=== PATIENT | female | born 1995 | race African-American/Black ===

== ENCOUNTER 2023-04-05 11:47 | Outpatient (CLI) | payer OTHER, SELFPAY ==
[2023-04-05 12:54] LABS: CRP < 0.5 mg/dL (<1.0)
[2023-04-05 12:55] LABS: Thyroid Stimulating Hormone 0.946 uIU/mL (0.465-4.680)
[2023-04-05 13:01] LABS: Erythrocyte Sedimentation Rate 23 mm/hr (0-20)
[2023-04-05 14:34] LABS: Appearance Urine Clear (Clear); Bacteria Urine Rare /hpf; Bilirubin Urine Negative (Negative); Blood Urine Negative (Negative); Color Urine Yellow (Yellow); Glucose Urine UA Negative (Negative); Ketones Urine Negative (Negative); Leukocyte Esterase Ur Trace LEU/UL (Negative); Nitrate Urine Negative (Negative); Non Pathogenic Casts 0-2; Protein Urine Negative (Negative); RBC Urine 0-2 /hpf (0-2); Specific Grav Ur 1.017 (1.001-1.035); Squamous Epithelial Cell Urine None seen /hpf (Few); WBC Urine 0-5 /hpf
[2023-04-05 14:40] LABS: Add Urine Microscopic? YES
[2023-04-11 04:18] LABS: Immunoglobulin A 302 mg/dL (47-310); TTG IGA AB <1.0 U/mL (<15.0)
== END 2023-04-05 11:48 | disposition home or self-care (01) ==
LOC: ANHLAB 11:48
PROVIDERS: Visit Provider Nurse Practitioner Family
DX: R10.9 Unspecified abdominal pain (principal); R19.4 Change in bowel habit; R19.7 Diarrhea, unspecified
CPT/HCPCS: 36415; 81001; 82784; 84443; 85652; 86140; 86364

== ENCOUNTER 2023-04-06 11:51 | Outpatient (NON) | payer OTHER, SELFPAY ==
[2023-04-06 13:13] LABS: Toxigenic C. Diff NEGATIVE (NEGATIVE)
[2023-04-14 22:42] LABS: Calprotectin, Stool 37 mcg/g
== END 2023-04-06 11:52 | disposition home or self-care (01) ==
LOC: ANHLAB 11:52
PROVIDERS: Nurse Practitioner; Visit Provider Nurse Practitioner Family
DX: R10.9 Unspecified abdominal pain (principal); R19.4 Change in bowel habit; R19.7 Diarrhea, unspecified
CPT/HCPCS: 83993; 87045; 87177; 87209; 87427; 87449; 87493

== ENCOUNTER 2023-04-10 01:44 | Day surgery (SDC) | payer OTHER, SELFPAY ==
[2023-04-05 10:21] VITALS: BMI 29.2
[2023-04-10] MEDS: LACTATED RINGERS 1,000 ML 150 ML IV CONT (06:42)
[2023-04-10 06:43] VITALS: BP 132/81; PULSE 100; RESP 18; TEMP 36.3; O2SAT 100
--- NOTE | 2023-04-10 07:27 | WPDANESEPPF ---
Anes - Initial Pre Proc Eval Procedure: Operation Date: 04/10/23 07:30 Proposed Procedures p Colonoscopy - Bishop Valle MD Date/Time: 04/10/23 07:27 Surgeon: Bishop Valle MD Pre Op Diagnosis: Diarrhea,Change in bowel habit,abdom. pain Patient Data Age: 28 Gender: F Height: 1.63 m Weight: 74.5 kg Last Vital Signs Temp 97.3 F L 04/10/23 06:43 Pulse 100 04/10/23 06:43 Resp 18 04/10/23 06:43 BP 132/81 04/10/23 06:43 Pulse Ox 100 04/10/23 06:43 O2 Del Method Room Air 04/10/23 06:43 Allergies Allergy/AdvReac Type Severity Reaction Status Date / Time No Known Allergies Allergy Unverified 04/10/23 06:26 Home Medications Medication Instructions Recorded Confirmed Type albuterol sulfate 90 mcg/actuation 1 puff inhalation Q4H PRN 04/03/23 04/05/23 History aerosol inhaler Shortness Of Breath drospiren-e.estrad-l.mefol 3 1 tablet PO DAILY 04/03/23 04/05/23 History mg-0.02 mg-0.451 mg(24)/0.451 mg(4)tablet hyoscyamine sulfate 0.125 mg tablet 0.125 mg PO QID PRN abdominal pain 04/03/23 04/05/23 Rx #120 tabs Patient hx anesthesia problems: none Family hx anesthesia problems: none Results Review: All pre-operative results and documents have been reviewed as part of the pre-operative evaluation. [facility] Past Medical History Medical History (Updated 04/03/23 @ 09:59 by SILKE Sage) Abdominal pain delivery delivered Change in bowel habits Diarrhea Social History Social History (Updated 04/03/23 @ 09:20 by Nuvia Dang MA) Smoking status: Never smoker Second hand tobacco smoke exposure: No Alcohol intake: current Substance use: never Substance use type: does not use Living arrangements: with family Spiritual care concerns: No Anes - Eval Final PreProcedure Day of Procedure 04/10/23 07:27 Patient weight: normal Heart: regular rate and rhythm Lungs: clear to auscultation Airway: Mallampati scale class II Neurological: alert and oriented Last oral intake: >/= 8 hours ASA classification: II Emergent: no Anesthetic plan: proceed Anesthesia type and monitoring: general GIVS and standard monitoring Results Review: All pre-operative results and documents have been reviewed as part of the pre-operative evaluation. Informed Consent: The patient's anesthetic plan and its attendant risks and benefits were discussed with the patient/family/POA. Questions were solicited and answers provided to the satisfaction of the patient/family/POA.
--- NOTE | 2023-04-10 07:29 | WPDHPUPDATE1 ---
History and Physical Update Update Date/Time: 04/10/23 07:29 History and Physical has been reviewed, including an updated exam of the patient. There are NO changes in the patient's condition. Risks, benefits, and alternatives have been discussed and questions answered. Patient agrees to proceed with procedure.
[2023-04-10 07:48] VITALS: BP 102/68; PULSE 97; RESP 18; O2SAT 99
[2023-04-10 07:58] VITALS: BP 116/72; PULSE 87; RESP 18; O2SAT 99
[2023-04-10 08:08] VITALS: BP 113/70; PULSE 81; RESP 18; O2SAT 100
== END 2023-04-10 08:17 | disposition home or self-care (01) ==
PROVIDERS: Visit Provider Internal Medicine Gastroenterology
PROC: 0DJD8ZZ Inspection of Lower Intestinal Tract, Via Natural or Artificial Opening Endoscopic (ICD-10-PCS; CPT 45378; principal; 2023-04-10 07:30)
DX: R19.7 Diarrhea, unspecified (principal); K64.8 Other hemorrhoids; Z79.51 Long term (current) use of inhaled steroids
CPT/HCPCS: 45378; J2704; J7120

== ENCOUNTER 2024-09-17 12:32 | Emergency (ER) | payer OTHER, MEDICAID, SELFPAY ==
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
[2024-09-17 12:44] VITALS: BP 133/81; PULSE 89; RESP 16; TEMP 36.8; O2SAT 100
== END 2024-09-17 13:25 | disposition home or self-care (01) ==
PROVIDERS: Emergency Provider Nurse Practitioner
DX: R51.9 Headache, unspecified (principal)
CPT/HCPCS: 99213; G0463

== ENCOUNTER 2025-02-05 12:03 | Outpatient (CLI) | payer OTHER, SELFPAY ==
--- OUTSIDE RECORDS SUMMARY | 2025-02-05 12:07 | XMS_ITS | Encounter Summary ---
Author Organization [facility] Healthcare Address [address] [place] [address] Care Team Providers Care Active Directory Systems Administrator Name Role Phone Rosanna Boston Primary Care Provider [phone] Encounter Details Date Type Department Care Team (Late st Contact Info) Description 01/27/2025 Results Follow-Up [facility] Medical Group Family Medicine [address] [address] Rosanna Carver PA [address] [place] [address] US Pelvis W Endovaginal Social History Tobacco Use Types Packs/Day Years Used Date Smoking Tobacco: Never Smokeless Tobacco: Never Alcohol Use Standard Drinks/Week Comments Not Currently 0 (1 standard drink = 0.6 oz pur e alcohol) AUDIT-C Answer Date Recorded Q1: How often do you have a drink containing alc ohol? 2-4 times a month 01/16/2025 Q2: How many drinks containi ng alcohol do you have on a typical day when you are drinking? 1 or 2 01/16/2025 Q3: How often do you have si x or more drinks on one occasion? Never 01/16/2025 PHQ-2 Answer Date Recorded PHQ-2 Total Score (If total score is 3 or more points, staff should administer the PHQ-9) 0 01/16/2025 [place] Depression Scale Answer Date Recorded [place] Depression Scale Total 8 11/12/2021 The thought of harming myself has occurred to me . Never 11/12/2021 Personal Safety Answer Date Recorded Have you ever been in or are you currently in a harmful physical or emotional relationship or is someone making you feel afraid or unsafe? Denies 03/28/2023 Comments No Sex and Gender Information Value Date Recorded Sex Assigned at Not on file Legal Sex Female 1:48 PM CDT Gender Identity Not on file Sexual Orientation Not on file documented as of this encounter Miscellaneous Notes * Result Encounter Note - Monica Guevara LPN - 01/27/2025 3:09 PM CDT Pt informed, voiced understanding. documented in this encounter Plan of Treatment Not on file documented as of this encounter Visit Diagnoses Not on filedocumented in this encounter Care Teams Active Directory Systems Administrator Relationship Specialty Start Date End Date Rosanna Boston PA [address] [facility] [address] [place], [place] [id number] PCP - General Family Medicine 09/26/24 documented as of this encounter
--- OUTSIDE RECORDS SUMMARY | 2025-02-05 12:07 | XMS_ITS | Clinical Summary ---
Author Organization [facility] Address [address] [facility] [place] [address] Care Team Providers Care Salmon Gillnet Vessel Operator Name Role Phone Unavailable Primary Care Provider Unavailabl e Source Comments [facility],non-owned Affiliates and Associated Physician Practices is amultiple site organization consisting of ambulatory clinics and hospital sitesin [place], [place], [place] and [place]. This disclosure is being madepursuant to the Care Everywhere program and may not contain all information available regarding this patient. Last updated 18.[facility] Allergies No known active allergies Medications * Be aware that medications may not be up to date on this document. Alwaysverify current medications with the patient. albuterol HFA (Proventil; Ventolin; Proair) 108 (90 Base) MCG/ACT inhaler TAKE 2 PUFFS BY MOUTH EVERY 4 HOURS NEEDED FOR WHEEZE 06/28/2021 Active HYDROcodone-acet aminophen (Debord) 5-325 MG tabletIndication s:Pain Take 1 (one) tablet by mouth every 6 hours as needed Reasons: Pain 12 tablet 11/08/2022 Active Active Problems Problem Noted Date Diagnosed Date Lipoma of left upper extremity 01/13/2021 Acne vulgaris 10/03/2018 Family History Medical History Relation Name Comments None Known Brother None Known Father None Known Maternal Aunt None Known Maternal Grandfather None Known Maternal Grandmother None Known Maternal Uncle None Known Mother None Known Other None Known Paternal Aunt None Known Paternal Grandfather None Known Paternal Grandmother None Known Paternal Uncle None Known Sister Asthma Neg Hx CVA Neg Hx Cancer - Breast Neg Hx Cancer - Other Neg Hx Cancer - Skin, Melanoma Neg Hx Cancer - Skin, Non Melanoma Neg Hx Eczema Neg Hx Hemophilia Neg Hx Psoriasis Neg Hx Relation Name Status Comments Brother Father Maternal Aunt Maternal Grandfather Maternal Grandmother Maternal Uncle Mother Other Paternal Aunt Paternal Grandfather Paternal Grandmother Paternal Uncle Sister Social History Tobacco Use Types Packs/Day Years Used Date Smoking Tobacco: Never Smokeless Tobacco: Never Tobacco Cessation:Counseling Given: Not Answered Alcohol Use Standard Drinks/Week Comments Yes 0 (1 standard drink = 0.6 oz pur e alcohol) OCC Comments Unknown Sex and Gender Information Value Date Recorded Sex Assigned at Not on file Legal Sex Female 4:46 AM INFECTION CONTROL NURSE Gender Identity Not on file Sexual Orientation Not on file Last Filed Vital Signs Vital Sign Reading Time Taken Comments Blood Pressure 156/78 11/08/2022 2:05 PM CDT Pulse 89 11/08/2022 2:05 PM CDT Temperature 36.3 C (97.3 F) 11/08/2022 1:55 PM CDT Respiratory Rate 14 11/08/2022 2:05 PM CDT Oxygen Saturation 100% 11/08/2022 2:05 PM CDT Inhaled Oxygen Concentration - - Weight 76.7 kg (169 lb) 11/08/2022 10:00 AM CDT Height 162.6 cm (5' 4) 11/08/2022 10:00 AM CDT Body Mass Index 29.01 11/08/2022 10:00 AM CDT Plan of Treatment Health Maintenance Due Date Last Done Comments HEPATITIS C SCREENING 02/09/2013 DTAP/TDAP/TD VACCINES (1 - Tdap) 2014 HEPATITIS B VACCINE (1 of 3 - 19+ 3-dose series) 2014 PAP SMEAR 02/15/2016 HPV VACCINE (1 - 3-dose SCDM series) 2022 COVID-19 VACCINE (1 - 2023-2 5 season) 2024 DEPRESSION SCREENING 06/26/2024 INFLUENZA VACCINE (#1) 2025 05/26/2017 ZOSTER VACCINE (1 of 2) 2045 HIV SCREENING Completed 07/01/2017, 12/23/2016 HIB VACCINE Aged Out No longer eligi ble based on patient's age to complete this topic MENINGOCOCCAL (Group B) VACCINE SHARED DECISION-MAKING Aged Out No longer eligible based on patient's age to complete this topic MENINGOCOCCAL GROUPS A/C/Y/W VACCINE Aged Out No longer eligible b ased on patient's age to complete this topic PNEUMOCOCCAL VACCINE Aged Out No long er eligible based on patient's age to complete this topic Insurance [facility] [place] [address] [place] [address]
--- OUTSIDE RECORDS SUMMARY | 2025-02-05 12:07 | XMS_ITS | Clinical Summary ---
Author Organization [facility] Address [address] [place] [id number] Care Team Providers Care Transit Police Officer Name Role Phone None, Provider MD Primary Care Provider Unavaila ble Allergies No known active allergies Medications No known medications Active Problems Problem Noted Date Diagnosed Date Normal course ([facility]) 07/02/2017 Resolved Problems Problem Noted Date Diagnosed Date Resolved Date Labor and delivery, indicati on for care ([facility]) 07/01/2017 07/02/2017 Family History Medical History Relation Comments None Father None Mother Relation Status Comments Brother Alive Father Alive Mother Alive Sister Alive Social History Tobacco Use Types Packs/Day Years Used Date Smoking Tobacco: Never Smokeless Tobacco: Never Alcohol Use Standard Drinks/Week Comments Yes 0 (1 standard drink = 0.6 oz pur e alcohol) OCCASIONALLY Comments Unknown Sex and Gender Information Value Date Recorded Sex Assigned at Not on file Legal Sex Female 7:22 PM CDT Gender Identity Not on file Sexual Orientation Not on file Last Filed Vital Signs Vital Sign Reading Time Taken Comments Blood Pressure 125/76 03/20/2021 4:53 PM CDT Pulse 87 03/20/2021 4:53 PM CDT Temperature 37.1 C (98.8 F) 03/20/2021 4:53 PM CDT Respiratory Rate 18 03/20/2021 4:53 PM CDT Oxygen Saturation 100% 03/20/2021 4:53 PM CDT Inhaled Oxygen Concentration - - Weight 72.6 kg (160 lb) 03/20/2021 4:53 PM CDT Height 162.6 cm (5' 4) 03/20/2021 4:53 PM CDT Body Mass Index 27.46 03/20/2021 4:53 PM CDT Plan of Treatment Health Maintenance Due Date Last Done Comments Annual Physical 1998 Hepatitis C 2013 DTaP, Tdap and Td Vaccines ( 1 - Tdap) 2014 Hepatitis B Vaccines (1 of 3 - 19+ 3-dose series) 2014 COVID-19 Vaccine (1 - 2023-2 5 season) 2024 Cervical Cancer Screening Pa p Smear (Age 21 to 29) Every 3 Years 09/14/2024 09/14/2021 Cervical Cancer Screening 09/14/2024 HPV Vaccines Completed 08/05/2008, 03/25/2008, 01/16/2008 Meningococcal Vaccine Completed 05/07/2012 , 07/04/2006 Meningococcal B Vaccine Aged Out No l onger eligible based on patient's age to complete this topic Pneumococcal Vaccine: Pediatrics (0 to 5 Years) and At-Risk Patients (6 to 49 Years) Aged Out No longer eligible b ased on patient's age to complete this topic RSV Immunizations Under 20 Months Aged Out No longer eligible b ased on patient's age to complete this topic Insurance [employer] Advance Directives * Full Code (Latest Code Status on File) Date Activated Date Inactivated Comments 07/01/2017 11:01 AM 07/02/2017 12:30 PM Care Teams Transit Police Officer Relationship Specialty Start Date End Date None, Provider, PCP - General 09/08/20
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
--- OUTSIDE RECORDS SUMMARY | 2025-02-05 12:07 | XMS_ITS | Encounter Summary ---
Author Organization [facility] Healthcare Address [address] [place] [address] Care Team Providers Care Supervisor Volunteer Services Name Role Phone Rosanna Boston Primary Care Provider [phone] Encounter Details Date Type Department Care Team (Late st Contact Info) Description 01/17/2025 Results Follow-Up [facility] Medical Group Family Medicine [address] [address] Rosanna Boston PA [address] [address] [place](R) Advanced Vaginitis Plus, TMA Vaginal fluid Social History Tobacco Use Types Packs/Day Years [...] staff should administer the PHQ-9) 0 01/16/2025 Gray Depression Scale Answer Date Recorded Gray Depression Scale Total 8 11/12/2021 The thought [...] encounter Miscellaneous Notes * Telephone Encounter - Ailyn Webb MA - 01/20/2025 2:35 PM CDT has not been seen since 2021 documented in this encounter Plan of Treatment Not on file documented as of this encounter Visit Diagnoses Not on filedocumented in this encounter Care Teams Supervisor Volunteer Services Relationship Specialty Start Date End Date Rosanna Boston PA [facility] [address] [address] PCP - General Family Medicine 09/26/24 documented as of this encounter
--- OUTSIDE RECORDS SUMMARY | 2025-02-05 12:07 | XMS_ITS | Clinical Summary ---
Author Organization [facility] Address [address] [place] [address] Care Team Providers Care Crossbow Maker Name Role Phone Rosanna Boston Primary Care Provider [phone] Allergies No known active allergies Medications multivitamin tabletIndicatio ns:Vitamin Deficiency Prevention Take 1 tablet by mouth daily Active phentermine (ADIPEX-P) 37.5 mg tabletIndicatio ns:Weight Loss Management for Obese Patient (BMI >= 30) Take 1 tablet (37.5 mg total) by mouth daily before breakfast 90 tablet 1 5 03/25/20 25 Active drospirenone-et hinyl estradioL (Marcelle, 28,) 3-0.02 mg per tablet Take 1 tablet by mouth daily 84 tablet 3 5 11/30/19 26 Active Additional Information Patient not taking.Reported on 01/16/2025 metroNIDAZOLE (FLAGYL) 500 mg tablet Take 1 tablet (500 mg total) by mouth 2 (two) times a day for 7 days 14 tablet 5 01/25/20 25 metroNIDAZOLE (FLAGYL) 500 mg tablet Take 1 tablet (500 mg total) by mouth 2 (two) times a day for 2 days 4 tablet 5 01/31/20 25 Active Problems Problem Noted Date Diagnosed Date Overweight (BMI 25.0-29.9) 10/05/2023 Assessment & Plan (09/26/2024 2:29 PM CDT): Chronic. Uncontrolled. Goal: 140lb Recommend Nutritional every other Monday Seminar. Recommended Medication :Start Phentermine. Assessment & Plan (09/19/2024 9:48 AM CDT): BMI Follow-up includes: education provided. Assessment & Plan (12/21/2023 3:06 PM CDT): Patient with 30 lb weight gain in the last 3 months. CBC, CMP, A1c and TSH normal. May be related to duloxetine, will change to sertraline. Referral provided to Dr. Álvarez. Assessment & Plan (10/05/2023 8:43 AM CDT): Chronic. Uncontrolled. See plan above. Anxiety and depression 07/08/2022 Assessment & Plan (12/21/2023 3:09 PM CDT): Chronic. Stable. Currently taking duloxetine which helps more for her abdominal pain near her surgical scar. She also feels abdominal pain is worsened by anxiety. Given potential to influence weight gain, we will stop duloxetine and change to sertraline. Stop duloxetine and start sertraline 50 mg next day. - discussed risks and side effects with patient - follow-up in 4 weeks Assessment & Plan (08/08/2023 12:59 PM ASSIGNMENT AGENT): Chronic. With possible new symptom of panic attacks. We will trial hydroxyzine. Continue duloxetine for pelvic pain and may also help with mood. Assessment & Plan (05/02/2023 10:51 AM ASSIGNMENT AGENT): Chronic. Uncontrolled. Start Cymbalta 30 mg every morning with food. Discussed actions/SE of anxiety and depression medications. May feel worse before feeling better. The pharmacologic and nonpharmacologic treatment of anxiety/depression were discussed with the patient. Included was a discussion of the current treatment regimens and their proposed mechanism of action concerning brain chemistry. Discussed the role of counseling as an adjunct to medications should we agree to pursue this. The patient denies suicidal or homicidal ideation and should this change, they agreed to inform us immediately or seek medical attention in the emergency room setting. Assessment & Plan (12/08/2022 10:08 AM CDT): Chronic. Stable. Without medication. Monitor Iron deficiency anemia 05/05/2022 Assessment & Plan (12/08/2022 10:08 AM CDT): Lost labs from her prior . Currently asymptomatic. Monitor Assessment & Plan (05/05/2022 9:37 AM ASSIGNMENT AGENT): Per patient request I have ordered vitamins since she states she tolerated these in the [id number] version. She is planning to get the labs done that were ordered in December to check her blood levels and ferritin. Well adult exam 01/04/2022 Overview (02/03/2025): PMH: Last pap: 10/25/2019, 12/08/2022 neg cells Last mammogram: @40 Last tdap: 2021 Last influenza: Last COVID: Last eye exam Assessment & Plan (12/08/2022 10:09 AM CDT): Annual Well Visit:08/27/2022 Mammogram: Pap: 10/25/2019, 12/08/2022 DXA: Colon Cancer: Zoster: Pneumococcal: Tdap: 2021 Acne vulgaris 10/03/2018 Assessment & Plan (12/08/2022 10:09 AM CDT): Chronic. Stable. Monitor Resolved Problems Problem Noted Date Diagnosed Date Resolved Date Abdominal pain 04/11/2023 12/04/2023 Assessment & Plan (10/05/2023 8:42 AM CDT): Chronic. Stable. Continue duloxetine 60 mg daily. Possible source of weight gain but she has been on this since March, less likely. Assessment & Plan (08/08/2023 12:55 PM ASSIGNMENT AGENT): Chronic. Improved with duloxetine. Continue. Discussed long-term impact of duloxetine include needing to monitor liver enzymes. - check blood work yearly Assessment & Plan (05/02/2023 10:51 AM ASSIGNMENT AGENT): Chronic. Pain improved with amitriptyline but with likely side effects of palpitations and tachycardia. Stop amitriptyline. We will start duloxetine 30 mg every morning. See plan below Assessment & Plan (04/11/2023 10:05 AM CDT): Chronic. Uncontrolled. Recent colonoscopy only showed nonbleeding internal hemorrhoids. CT of the abdomen and pelvis negative in the ER. Recent gynecological visit did not favor Gynecological etiology for pain. - we will get blood work from [place] to further evaluate the inflammatory markers patient mentions - consider surgical consult? Pain is near her scar - discussed IBS diet to try - can try ibuprofen 600 mg 3 times daily for 5 days. Take with food - will discuss case with supervising physician - consider nerve pain medicine; amitriptyline or gabapentin Overweight (BMI 25.0-29.9) 12/08/2022 0 10/05/2023 Assessment & Plan (08/08/2023 12:54 PM ASSIGNMENT AGENT): BMI Follow-up includes: education provided. Assessment & Plan (12/08/2022 10:10 AM CDT): Exercise 5 days a week, 30 mins per day recommended. Eat a heart healthy diet consisting of good, healthy protein (eggs, nuts, peanut butter, chicken, fish, turkey, less pork/beef), lots of vegetables, less carbohydrates and less sugar. Adjustment disorder with anxious mood 02/11/2022 07/08/2022 37 weeks gestation of 11/10/2021 01/04/2022 Encounters Date Type Department Care Team Description 01/28/2025 Orders Only [facility] Family Medicine [address] [place] [address] [phone] Rosanna Boston PA 01/28/[address] [phone] Rosanna Boston PA Medical Question/Miscellane ous 01/27/2025 Results Follow-Up [address] [phone] Rosanna Carver PA US Pelvis W Endovaginal 01/17/2025 Orders Only [address] [phone] Rosanna Boston PA 01/17/2025 Results Follow-Up [address] [phone] Rosanna Boston PA Sureswab(R) Advanced Vaginitis Plus, TMA Vaginal fluid 01/16/2025 9:00 AM CDT Office Visit [address] [phone] Rosanna Boston PA Vaginal discharge (Primary Dx); Vaginal odor; Overweight (BMI 25.0-29.9) 01/09/2025 4:00 PM CDT - 01/09/2025 11:59 PM CDT Hospital Encounter [facility] [address] [place] [address] Fibroids, submucosal; Pelvic pain Discharge Disposition: Discharge to home or self care 01/02/[address] [phone] Rosanna Boston PA Test Results 01/01/2025 1:00 PM CDT Lab [facility] [address] [place] [address] Secondary amenorrhea 01/01/2025 Results Follow-Up [address] [phone] Gemma Thompson PA Thyroid Function [place], Prolactin, Follicle stimulating hormone, Additional followed-up results: 3 12/31/2024 1:00 PM CDT Office Visit [address] [phone] Rosanna Carver, TAPAN Pelvic pain (Primary Dx); Fibroids, submucosal; Vaginal odor 12/31/2024 Nurse Triage [facility] [address] [phone] Rosanna Boston PA 11/29/2024 Orders Only [facility] [address] [phone] Rosanna Boston PA from Last 3 Months Immunizations Immunization Administration Dates Next Due DTaP 02/07/2000 DTaP, Unspecified 02/07/2000, 6,1995,06/23,1995 HPV, Quadrivalent 08/05/2008,03/25/2008,01/16/20 08 Hep B, Unspecified 1995,1995, 995 HiB 02/16/1996, 6,1995,04/22 Influenza, Quadrivalent, Spl it, Intramuscular 05/26/2017 Influenza, Unspecified 03/26/2024(Deferr ed: Patient decision),03/26/2024(Deferred: Patient decision),03/26/2024(Deferred: Patient decision),03/21/2023(Deferred: Patient Refused),03/26/2022(Deferred: Patient Refused),03/26/2021(Deferred: Patient Refused) MMR 11/11/2021(Deferred: Other - pt is rubella immune),02/07/2000,02/16/1996 Meningococcal MCV4P (Menactra) 05/07/2012,2006 OPV 02/07/2000 Polio, Unspecified 02/07/2000, 6,1995,04/22 Tdap 11/01/2021,05/22/2017,07/04/2006 Varicella 07/19/2006,07/15/1996 Surgical History Surgery Date Site/Laterality Comments SECTION LIPOMA RESECTION 12/01/2022 Left Left Forearm Family History Medical History Relation Name Comments Cancer Maternal Grandmother Heart disease Maternal Grandmother No Known Problems Paternal Grandmother Breast cancer Neg Hx Ovarian cancer Neg Hx Uterine cancer Neg Hx Relation Name Status Comments Father Unknown Maternal Grandmother Mother Alive Paternal Grandmother Alive Social History Tobacco Use Types Packs/Day Years Used Date Smoking Tobacco: Never Smokeless Tobacco: Never Tobacco Cessation:Counseling Given: Not Answered Alcohol Use Standard Drinks/Week Comments Not Currently [...] staff should administer the PHQ-9) 0 01/16/2025 [place] Depression Scale Answer Date Recorded [place] Depression Scale Total 8 11/12/2021 The thought [...] on file Sexual Orientation Not on file Obstetrics History Para Term AB IAB SAB Ectopic Multiple Livin g Live Births 3 3 3 0 3 3 Date Outcome GA Total Labor Labor/2nd/3rd Weight Sex Type Anes PTL Debra A1 A5 Name Clin 2017 Term 40w 0d M Vag-S pont 2019 Term 38w 0d M Vag-S pont Livin g Complications:Other (Comment ),Active labor, not applicable or unspecified fetus 022 Term 37w 0d 0h 02m 0h 02m 3.345 kg (7 lb 6 oz) F CS-LT ranv Spinal Livin g 8 9 CARY US,GI RLCAM ILLE Gian Chicas MD Delivery Location:[facility] Main [facility] ([facility]) Last Filed Vital Signs Vital Sign Reading Time Taken Comments Blood Pressure 102/74 01/16/2025 9:02 AM CDT Pulse 95 01/16/2025 9:02 AM CDT Temperature 36.7 C (98 F) 01/16/2025 9:02 AM CDT Respiratory Rate 16 01/16/2025 9:02 AM CDT Oxygen Saturation 99% 01/16/2025 9:02 AM CDT Inhaled Oxygen Concentration - - Weight 78.5 kg (173 lb) 01/16/2025 9:02 AM CDT Height 162.6 cm (5' 4) 01/16/2025 9:02 AM CDT Body Mass Index 29.7 01/16/2025 9:02 AM CDT Plan of Treatment Health Maintenance Due Date Last Done Comments Regular Well Visit/Exam 18-64 12/09/2023 12/08/2022, 11/04/2019 Influenza Vaccine (#1) 2025 05/26/2017 Cervical Cancer Screening 12/08/2025 12/08/2022, Depression Screening 01/16/2026 01/16/2025, 12/31/2024, 09/19/2024, Additional history exists DTaP/Tdap/Td Vaccine (9 - Td or Tdap) 11/02/2031 11/01/2021, 05/22/2017, 07/04/2006, Additional history exists Colon Cancer Screening-Colonoscopy 04/10/2033 04/10/2023 Hepatitis B Screening Completed 1995 , 1995, 1995 Varicella Vaccines Completed 07/19/2006, 07/15/1996 HPV Vaccines Completed 08/05/2008, 02/26, 01/16/2008 Hepatitis C Screening Completed 11/04/2019 Pneumococcal vaccine <65 Aged Out No longer eligible based on patient's age to complete this topic Procedures Procedure Name Priority Date/Time Associated Diagnosis Comments SURESWAB(R) ADVANCED VAGINITIS PLUS, TMA Routine 01/16/2025 10:00 AM CDT Vaginal discharge Vaginal odor US PELVIS W ENDOVAGINAL Schedule Routine, Read Routine (OP Routine) 01/09/2025 5:12 PM CDT Fibroids, submucosal Pelvic pain 17 HYDROXYPROGESTERONE Routine 1:14 PM CDT Secondary amenorrhea THYROID FUNCTION CASCADE Routine 025 1:14 PM CDT Secondary amenorrhea TOTAL TESTOSTERONE Routine 01/01/2025 1: 14 PM CDT Secondary amenorrhea INSULIN, TOTAL Routine 01/01/2025 1:14 PM CDT Secondary amenorrhea FOLLICLE STIMULATING HORMONE Routine 01/01/2025 1:14 PM CDT Secondary amenorrhea PROLACTIN Routine 01/01/2025 1:14 PM CDT Secondary amenorrhea HM COLONOSCOPY Routine 04/10/2023 PAP WITH REFLEX TO HIGH RISK HPV Routine 12/08/2022 8:30 AM CDT Cervical cancer screening HEPATITIS C ANTIBODY Routine 11/04/2019 2:54 PM CDT Positive test from Last 3 Months or Most Recently Relevant to Health Maintenance Results * (ABNORMAL) Sureswab(R) Advanced Vaginitis Plus, TMA Vaginal fluid (01/16/2025 10:00 AM CDT) SureSwab(R) ADV Bacterial vaginosis (BV), TMA POSITIVE(A) NEGATIVE [facility] Michaela species NOT DETECTED NOT DETECTED [facility] Michaela glabrata NOT DETECTED NOT DETECTED [facility] Comment: Michaela species C. albicans, C. tropicalis, C. parapsilosis, and/or C. dubliniensis can be detected, but not differentiated, in the Michaela spp. result. Trichomonas vaginalis (TV), TMA NOT DETECTED NOT DETECTED [facility] C. trachomatis RNA NOT DETECTED NOT DETECTED [facility] N. gonorrhoeae RNA NOT DETECTED NOT DETECTED [facility] Comment: For additional information, please refer to https://education.Eqvilibria.Heetch/faq/KWA836 (This link is being provided for information/ educational purposes only.) Vaginal fluid 01/16/2025 10: 00 AM CDT 01/17/2025 5:25 AM CDT Rosanna PHELAN LAB MICROBIOLOGY - GENERA L ORDERABLES Final Result [facility] [address] [place] [address] * US Pelvis W Endovaginal (01/09/2025 5:12 PM CDT) Anatomical Region Laterality Modality Pelvis N/A Ultrasound 01/25/2025 10:2 5 AM CDT Narrative 01/25/2025 10:27 AM CDT EXAM DESCRIPTION: US PELVIS W ENDOVAGINAL REASON FOR STUDY: h/o fibroid, pelvic pain, PCOS? TECHNIQUE: Grayscale ultrasound of the pelvic contents was performed with transabdominal and transvaginal transducer. COMPARISON: 02/16/2023. CT abdomen pelvis 03/28/2023. FINDINGS: UTERUS: The uterus is anteverted. The uterus is homogenous in echotexture and measures 11.1 x 6.0 x 5.0 cm. In the anterior aspect lower uterine segment there is an ovoid slightly hyperechoic mass characteristic of a fibroid 1.6 x 1.7 x 2.4 cm. ENDOMETRIUM: The endometrium measures 1.1 cm in thickness. RIGHT OVARY: The right ovary could not be demonstrated for assessment. LEFT OVARY: The left ovary measures 2.7 x 2.6 x 3.3 cm. There is documentation of color Doppler flow in the left ovary. The left ovary appears unremarkable. PELVIC FLUID: There is no evidence of free fluid in the pelvis. OTHER: No other significant findings. IMPRESSION: 1. No evidence of an acute abnormality. 2. Right ovary could not be demonstrated for assessment. 3. Uterine fibroid 2.4 cm. THIS IS AN ELECTRONICALLY VERIFIED FINAL REPORT 01/25/2025 10:27 AM - Electronically signed by Silas Denis M.D. T: Report ID: [id number] Reading Location: [id number] Procedure Note Silas Denis Jr., MD - 01/25/2025 EXAM DESCRIPTION: US PELVIS W ENDOVAGINAL REASON FOR STUDY: h/o fibroid, pelvic pain, PCOS? TECHNIQUE: Grayscale ultrasound of the pelvic contents was performed with transabdominal and transvaginal transducer. COMPARISON: 02/16/2023. CT abdomen pelvis 03/28/2023. FINDINGS: UTERUS: The uterus is anteverted. The uterus is homogenousin echotexture and measures 11.1 x 6.0 x 5.0 cm. In the anterior aspectlower uterine segment there is an ovoid slightly hyperechoic mass characteristicof a fibroid 1.6 x 1.7 x 2.4 cm. ENDOMETRIUM: The endometrium measures 1.1 cm in thickness. RIGHT OVARY: The right ovary could not be demonstrated for assessment. LEFT OVARY: The left ovary measures 2.7 x 2.6 x 3.3 cm. There is documentation of color Doppler flow in the left ovary. The left ovaryappears unremarkable. PELVIC FLUID: There is no evidence of free fluid in the pelvis. OTHER: No other significant findings. IMPRESSION: 1. No evidence of an acute abnormality. 2. Right ovary could not be demonstrated for assessment. 3. Uterine fibroid 2.4 cm. THIS IS AN ELECTRONICALLY VERIFIED FINAL REPORT 01/25/2025 10:27 AM - Electronically signed by Silas Denis M.D. T: Report ID: [id number] Reading Location: [id number] Rosanna PHELAN IMG US PROCEDURES Final Result * Thyroid Function [place] (01/01/2025 1:14 PM CDT) TSH 0.72 0.30 - 4.20 mcIUnit/mL Comment:Testing performed by : [facility], [address] [place] [address]., [address] Blood 01/01/2025 1:14 PM CDT 01/01/2025 2:09 PM CDT Rosanna PHELAN LAB BLOOD ORDERABLES Meka l Result Performing Organization Address [facility] de Phone Number BRIGID [address] [place] [address] * 17-Hydroxyprogesterone (01/01/2025 1:14 PM CDT) 17-hydroxyprogestero ne 138 ng/dL [facility] Comment: REFERENCE VALUE < 80 (Follicular) <285 (Luteal) ADDITIONAL INFORMATION This test was developed and its performance characteristics determined by [facility] in a manner consistent with CLIA requirements. This test has not been cleared or approved by the U.S. Food and Drug Administration. Test Performed by: [facility] [address] [place] [address] Sales And Service Specialist: Evaristo العلي Ph.D.; CLIA# [id number] Testing performed by: [facility], [address] [place] [address]., [address] Blood 01/01/2025 1:14 PM CDT 01/01/2025 2:09 PM CDT Rosanna PHELAN LAB BLOOD ORDERABLES Meka l Result Performing Organization Address [facility] Co de Phone Number BRIGID [address] [place] [address] [facility] * Prolactin (01/01/2025 1:14 PM CDT) Prolactin 21.1 4.8 - 23.3 ng/mL Comment:Testing performed by : [facility], [address] [place]., [address] Blood 01/01/2025 1:14 PM CDT 01/01/2025 5:37 PM CDT Rosanna PHELAN LAB BLOOD ORDERABLES Meka l Result Performing Organization Address City/[facility] Co de Phone Number [address] [address] * (ABNORMAL) Insulin, total (01/01/2025 1:14 PM CDT) Insulin 62.9(H) 2.6 - 25.0 mcIUnit/mL Blood 01/01/2025 1:14 PM CDT 01/01/2025 4:54 PM CDT Rosanna PHELAN LAB BLOOD ORDERABLES Meka l Result Performing Organization Address [facility] de Phone Number [address] [address] * Total testosterone (01/01/2025 1:14 PM CDT) Testosterone 32.40 8.40 - 48.10 ng/dL Blood 01/01/2025 1:14 PM CDT 01/01/2025 4:54 PM CDT Result [facility] Rosanna PHELAN LAB BLOOD ORDERABLES Meka l Result Performing Organization Address [facility] Co de Phone Number [address] [address] * Follicle stimulating hormone (01/01/2025 1:14 PM CDT) FSH 3.4 1.5 - 12.4 IUnits/L Blood 01/01/2025 1:14 PM CDT 01/01/2025 4:54 PM CDT Rosanna PHELAN LAB BLOOD ORDERABLES Meka l Result Performing Organization Address City/[facility] Co de Phone Number BRIGID [address] [facility] [place] [address] * COLONOSCOPY (04/10/2023) Historical Provider HEALTH MAINTENANCE Final Result * Pap with reflex to High Risk HPV (12/08/2022 8:30 AM CDT) CLINICAL INFORMATION: Cinthya Mosqueda Comment:None given LMP Cinthya Mosqueda Comment:11/24/22 Previous Pap Cinthya Mosqueda Comment:NONE GIVEN Prev. Bx Cinthya Mosqueda Comment:NONE GIVEN SOURCE: Cinthya Mosqueda Comment:Cervix, Endocervix Pap, specimen adequacy Cinthya Mosqueda Comment: Satisfactory for evaluation. Endocervical/transformation zone component present. HPV interp Cinthya Mosqueda Comment:Negative for intraep ithelial lesion or malignancy. COMMENTS Cinthya Mosqueda Comment: This Pap test has been evaluated with computer assisted technology. Sweat Band Sewer [facility] st Jodie Mosqudea Comment: AMW, CT(ASCP) CT screening location: [place] [address] [address] [place] [address] Comment Cinthya Mosqueda Comment: EXPLANATORY NOTE: The Pap is a screening test for cervical cancer. It is not a diagnostic test and is subject to false negative and false positive results. It is most reliable when a satisfactory sample, regularly obtained, is submitted with relevant clinical findings and history, and when the Pap result is evaluated along with historic and current clinical information. Thin prep 12/08/2022 8:30 AM CDT 12/09/2022 12:19 AM CDT Rosanna PHELAN LAB CYTOLOGY ORDERABLES F inal Result Performing Organization Address City/[facility]/ZIP Co de Phone Number [facility] [address] [address] [place] [address] * Hepatitis C antibody (11/04/2019 2:54 PM CDT) Hep C Ab NONREACT NONREACTIVE [facility] Comment: Siemens CentaurXP using HILARIO (chemiluminescent immunoassay) technology. NONREACTIVE: Antibodies to Hepatitis C not detected. This does not exclude early acute Hepatitis C infection, possibility of exposure to Hepatitis C, antibodies below detection limit, or to lack of antibody reactivity to the antigen used in this assay. EQUIVOCAL: Antibodies to Hepatitis C may or may not be present. Sample to be confirmed by real-time PCR method. REACTIVE: Antibodies to Hepatitis C detected.Sample to be confirmed by real-time PCR method. Blood specimen (specimen) 11/04/2019 2:54 PM CDT 11/04/2019 3:15 PM CDT Narrative Resulting Agency Comment CLI Eugenia Denis MD LAB MICROBIOLOGY - GEN ERAL ORDERABLES Final Result [address] [phone] from Last 3 Months or Most Recently Relevant to Health Maintenance [facility] Advance Directives For more information, please contact: [phone] * Full Code (Latest Code Status on File) Date Activated Date Inactivated Comments 11/10/2021 6:54 AM 11/13/2021 9:41 PM * Full Code Date Activated Date Inactivated Comments 11/10/2021 3:22 AM 11/10/2021 6:54 AM * Full Code Date Activated Date Inactivated Comments 11/10/2021 3:11 AM 11/10/2021 3:21 AM Full CPR in case of cardiopulmonary arrest Care Teams Crossbow Maker Relationship Specialty Start Date End Date Rosanna Boston PA [address] [place] [address] PCP - General Family Medicine 09/26/24
--- OUTSIDE RECORDS SUMMARY | 2025-02-05 12:07 | XMS_ITS | Encounter Summary ---
Author Organization [facility] Healthcare Address [address] [place] [address] Care Team Providers Care Recreational Resort Manager Name Role Phone Rosanna Boston Primary Care Provider [phone] Encounter Details Date Type Department Care Team (Late st Contact Info) Description 01/01/2025 Results Follow-Up [facility] Family Medicine [address] [phone] Gemma Thompson PA [address] [id number] Thyroid Function [place], Prolactin, Follicle stimulating hormone, Additional followed-up results: 3 Social History Tobacco Use Types Packs/Day Years Used Date Smoking Tobacco: Never Smokeless Tobacco: Never Alcohol Use Standard Drinks/Week Comments Not Currently 0 (1 standard drink = 0.6 oz pur e alcohol) AUDIT-C Answer Date Recorded Q1: How often do you have a drink containing alc ohol? 2-4 times a month 12/31/2024 Q2: How many drinks containi ng alcohol do you have on a typical day when you are drinking? 1 or 2 12/31/2024 Q3: How often do you have si x or more drinks on one occasion? Never 12/31/2024 PHQ-2 Answer Date Recorded PHQ-2 Total Score (If total score is 3 or more points, staff should administer the PHQ-9) 0 12/31/2024 [place] Depression Scale Answer Date Recorded [place] Depression Scale Total 8 11/12/2021 The thought [...] on file documented as of this encounter Plan of Treatment Not on file documented as of this encounter Visit Diagnoses Not on filedocumented in this encounter Care Teams Recreational Resort Manager Relationship Specialty Start Date End Date Rosanna Boston PA [address] [phone] PCP - General Family Medicine 09/26/24 documented as of this encounter
== END 2025-02-05 12:04 | disposition home or self-care (01) ==
LOC: ANHLAB 12:05
PROVIDERS: Visit Provider Nurse Practitioner Family
DX: R14.0 Abdominal distension (gaseous) (principal); R68.81 Early satiety
CPT/HCPCS: 83013